=== PATIENT | female | born 1985 | race American Indian/Alaskan Native ===

== ENCOUNTER 2021-05-19 09:38 | Emergency (ER) | payer MEDICAID, OTHER ==
[2021-05-19 09:14] VITALS: BP 124/80
--- NOTE | 2021-05-19 11:56 | Emergency Department Report ---
ED General Adult HPI - General Chief complaint: Pain General Stated complaint: LUPUS JOINT PAIN Time Seen by Provider: 05/19/21 11:48 Source: patient Mode of arrival: Ambulatory Limitations: No Limitations - History of Present Illness Initial comments: Patient is a 35-year-old female presents emergency room complaints of a flare of her lupus that began a week and a half ago. She states that she experiences it in different joints. She states it is never in the same joints. She states occasionally the joints will swell. She states it feels like a burning sensation in her joints. Patient states that she takes Plaquenil and prednisone 5 mg daily. She states that she has been out of her medication for 2 weeks. She reports that she recently went to urgent care and was given a steroid shot. She states that she missed her appointment in April with her diesel motor mechanic and she cannot get another appointment until September. She denies any fever, nausea, vomiting, diarrhea, numbness, weakness, any other symptoms. No allergies to medicines. - Related Data Previous Rx's Medication Instructions Recorded Last Taken Type Hydroxychloroquine [Plaquenil] 200 mg PO QDAY #30 tablet 05/19/21 Unknown Rx Naproxen [EC-Naprosyn] 500 mg PO BID PRN #20 tablet. 05/19/21 Unknown Rx predniSONE 5 mg PO QDAY #60 tab 05/19/21 Unknown Rx predniSONE [Deltasone] 40 mg PO QDAY 5 Days #10 tab 05/19/21 Unknown Rx traMADoL [Ultram 50 MG tab] 50 mg PO Q6HR PRN #12 tablet 05/19/21 Unknown Rx Allergies Allergy/AdvReac Type Severity Reaction Status Date / Time No Known Allergies Allergy Unverified 05/19/21 09:09 ED Review of Systems ROS: Stated complaint: LUPUS JOINT PAIN Other details as noted in HPI Comment: All other systems reviewed and negative ED Past Medical Hx - Past Medical History Previous Medical History?: Yes Additional medical history: Lupus - Surgical History Additional Surgical History: tonsilectomy - Medications Home Medications: Home Medications Medication Instructions Recorded Confirmed Last Taken Type Hydroxychloroquine [Plaquenil] 200 mg PO QDAY #30 tablet 05/19/21 Unknown Rx Naproxen [EC-Naprosyn] 500 mg PO BID PRN #20 tablet. 05/19/21 Unknown Rx predniSONE 5 mg PO QDAY #60 tab 05/19/21 Unknown Rx predniSONE [Deltasone] 40 mg PO QDAY 5 Days #10 tab 05/19/21 Unknown Rx traMADoL [Ultram 50 MG tab] 50 mg PO Q6HR PRN #12 tablet 05/19/21 Unknown Rx ED Physical Exam - General Limitations: No Limitations General appearance: alert, in no apparent distress - Head Head exam: Present: atraumatic, normocephalic - Eye Eye exam: Present: normal appearance - ENT ENT exam: Present: mucous membranes moist - Respiratory Respiratory exam: Absent: respiratory distress, accessory muscle use - Extremities Exam Extremities exam: Present: other (FROM of the BUE/BLE, mild ttp in multiple joints, no edema, no erythema, no increased warmth, neurovasculalry intact throughout) - Neurological Exam Neurological exam: Present: alert, oriented X3 - Psychiatric Psychiatric exam: Present: normal affect, normal mood - Skin Skin exam: Present: warm, dry, intact ED Course Vital Signs 05/19/21 09:10 Temperature 98.8 F Pulse Rate 89 Respiratory 16 Rate Blood Pressure 124/80 [Right] O2 Sat by Pulse 98 Oximetry ED Medical Decision Making - Medical Decision Making Patient is a 35-year-old female presents emergency room complaints of a flare of her lupus that began a week and a half ago. She states that she experiences it in different joints. She states it is never in the same joints. She states occasionally the joints will swell. She states it feels like a burning sensation in her joints. Patient states that she takes Plaquenil and prednisone 5 mg daily. She states that she has been out of her medication for 2 weeks. She reports that she recently went to urgent care and was given a steroid shot. She states that she missed her appointment in April with her diesel motor mechanic and she cannot get another appointment until September. She denies any fever, nausea, vomiting, diarrhea, numbness, weakness, any other symptoms. No allergies to medicines. Vitals are normal. On exam:FROM of the BUE/BLE, mild ttp in multiple joints, no edema, no erythema, no increased warmth, neurovasculalry intact throughout. Patient given prescription for medications. Advised patient Please take medication as prescribed. Please follow-up with your primary care doctor. Please follow-up with your diesel motor mechanic. Return to emergency room for any new or worsening symptoms. Do not drive or operate heavy machinery while taking severe pain medication tramadol. Critical care attestation.: If time is entered above; I have spent that time in minutes in the direct care of this critically ill patient, excluding procedure time. ED Disposition Clinical Impression: Lupus, Medication refill Joint pain Qualifiers: Joint pain location: unspecified Qualified Code(s): M25.50 - Pain in unspecified joint Disposition: - TO HOME OR SELFCARE Is pt being admited?: No Does the pt Need Aspirin: No Condition: Stable Instructions: Systemic Lupus Erythematosus, Adult, Joint Pain, [id number] Additional Instructions: Please take medication as prescribed. Please follow-up with your primary care doctor. Please follow-up with your diesel motor mechanic. Return to emergency room for any new or worsening symptoms. Do not drive or operate heavy machinery while taking severe pain medication tramadol. Prescriptions: predniSONE [Deltasone] 40 mg PO QDAY 5 Days #10 tab Naproxen [EC-Naprosyn] 500 mg PO BID PRN #20 tablet. PRN Reason: Pain, Moderate (4-6) Hydroxychloroquine [Plaquenil] 200 mg PO QDAY #30 tablet predniSONE 5 mg PO QDAY #60 tab traMADoL [Ultram 50 MG tab] 50 mg PO Q6HR PRN #12 tablet PRN Reason: Pain , Severe (7-10) Referrals: PRIMARY CARE, [Primary Care Provider] - 2-3 Days Time of Disposition: 11:53 Print Language: PALAUAN
== END 2021-05-19 11:57 | disposition home or self-care (01) ==
LOC: ED 09:38
DX: M32.10 Systemic lupus erythematosus, organ or system involvement unspecified (principal); Z76.0 Encounter for issue of repeat prescription; Z79.899 Other long term (current) drug therapy
CPT/HCPCS: 99281

== ENCOUNTER 2022-04-11 14:08 | Emergency (ER) | payer MEDICAID ==
--- NOTE | 2022-04-11 14:26 | Emergency Department Report ---
Chief Complaint: Medical Clearance Stated Complaint: JOINT/SEVERE BACK PAIN Time Seen by Provider: 04/11/22 14:24 - HPI History of Present Illness: Several day history of worsening back and joint pain. History of lupus. - ROS Review of Systems: Back pain. - Exam Vital Signs: Vital Signs 04/11/22 14:16 Temperature 96.9 F L Pulse Rate 109 H Respiratory 18 Rate Blood Pressure 129/87 [Left] O2 Sat by Pulse 100 Oximetry Physical Exam: Left flank area tender to touch. MSE screening note: Focused history and physical exam performed. Due to findings the following was ordered: None Patient to be seen and evaluated by provider when she gets into a long period ED Disposition for MSE Condition: Stable
[2022-04-11] MEDS ORDERED: dexAMETHasone 20 MG/5 ML VIAL IM ONE (16:58)
[2022-04-11] MEDS ORDERED: diazePAM 5 MG TAB PO ONE (16:58)
[2022-04-11] MEDS ORDERED: KETOROLAC 60 MG/2 ML INJ IM ONE (16:58)
[2022-04-11] MEDS ORDERED: ONDANSETRON 4 MG ODT TAB PO ONE (17:04)
--- NOTE | 2022-04-11 17:04 | Emergency Department Report ---
ED Back Pain/Injury HPI - General Chief Complaint: Medical Clearance Stated Complaint: JOINT/SEVERE BACK PAIN Time Seen by Provider: 04/11/22 14:24 Source: patient Limitations: No Limitations - History of Present Illness Initial Comments: Patient is a 36-year-old -Japanese female with a history of SLE and lupus on oral prednisone 10 mg daily in addition to other medications for SLE presents to the ED with acute onset persistent nontraumatic left-sided mid posterior thoracic pain for the last 3 days. Patient states that the pain is worsened in the last 24 hours such that she is unable to sleep because of worsening pain. Patient states the pain is especially worse with movement or palpation of the back. Patient denies chest pain, dyspnea, dizziness, syncope, traumatic injury, headache, heavy lifting, abdominal pain, nausea and vomiting, dysuria, urinary frequency and urgency or cough. MD Complaint: back pain (Left-sided mid posterior thoracic pain) -: days(s) (3) Similar Symptoms Previously: No Place: home Radiation: none Severity: severe Severity scale (0 -10): 8 Quality: sharp, aching Consistency: constant Improves With: none Worsens With: movement, walking Context: while lifting, turning/twisting, bending Associated Symptoms: denies other symptoms. denies: confusion, weakness, chest pain, numbness, difficulty walking, cough, difficulty urinating, diaphoresis, incontinence, constipation, loss of appetite, malaise, nausea/vomiting, rash, seizure, syncope, other - Related Data Previous Rx's Medication Instructions Recorded Last Taken Type Hydroxychloroquine [Plaquenil] 200 mg PO QDAY #30 tablet 05/19/21 Unknown Rx predniSONE 5 mg PO QDAY #60 tab 05/19/21 Unknown Rx predniSONE [Deltasone] 40 mg PO QDAY 5 Days #10 tab 05/19/21 Unknown Rx Naproxen [EC-Naprosyn] 500 mg PO BID PRN #30 tablet. 04/11/22 Unknown Rx methOCARBAMOL [Robaxin TAB] 750 mg PO Q8H PRN #30 tab 04/11/22 Unknown Rx traMADoL [Ultram 50 MG tab] 50 mg PO Q6HR PRN #12 tablet 04/11/22 Unknown Rx Allergies Allergy/AdvReac Type Severity Reaction Status Date / Time No Known Allergies Allergy Verified 04/11/22 14:18 ED Review of Systems ROS: Stated complaint: JOINT/SEVERE BACK PAIN Other details as noted in HPI Constitutional: denies: chills, fever Eyes: denies: eye pain, eye discharge, vision change ENT: denies: ear pain, throat pain Respiratory: denies: cough, shortness of breath, wheezing Cardiovascular: denies: chest pain, palpitations Endocrine: no symptoms reported Gastrointestinal: denies: abdominal pain, nausea, vomiting, diarrhea Genitourinary: denies: urgency, dysuria, discharge Musculoskeletal: back pain (Left-sided mid posterior thoracic pain). denies: joint swelling, arthralgia Skin: denies: rash, lesions Neurological: denies: headache, weakness, paresthesias Psychiatric: denies: anxiety, depression Hematological/Lymphatic: denies: easy bleeding, easy bruising ED Past Medical Hx - Past Medical History Additional medical history: Lupus - Surgical History Additional Surgical History: tonsilectomy - Medications Home Medications: Home Medications Medication Instructions Recorded Confirmed Last Taken Type Hydroxychloroquine [Plaquenil] 200 mg PO QDAY #30 tablet 05/19/21 Unknown Rx predniSONE 5 mg PO QDAY #60 tab 05/19/21 Unknown Rx predniSONE [Deltasone] 40 mg PO QDAY 5 Days #10 tab 05/19/21 Unknown Rx Naproxen [EC-Naprosyn] 500 mg PO BID PRN #30 tablet. 04/11/22 Unknown Rx methOCARBAMOL [Robaxin TAB] 750 mg PO Q8H PRN #30 tab 04/11/22 Unknown Rx traMADoL [Ultram 50 MG tab] 50 mg PO Q6HR PRN #12 tablet 04/11/22 Unknown Rx ED Physical Exam - General Limitations: No Limitations General appearance: alert, in no apparent distress - Head Head exam: Present: atraumatic, normocephalic, normal inspection - Eye Eye exam: Present: normal appearance, PERRL, EOMI Pupils: Present: normal accommodation - ENT ENT exam: Present: normal exam, normal orophraynx, mucous membranes moist, TM's normal bilaterally, normal external ear exam - Neck Neck exam: Present: normal inspection, full ROM. Absent: tenderness - Respiratory Respiratory exam: Present: normal lung sounds bilaterally. Absent: respiratory distress, wheezes, rhonchi, stridor, chest wall tenderness, accessory muscle use, decreased breath sounds, prolonged expiratory - Cardiovascular Cardiovascular Exam: Present: normal rhythm, tachycardia, normal heart sounds. Absent: systolic murmur, diastolic murmur, rubs, gallop - GI/Abdominal GI/Abdominal exam: Present: soft, normal bowel sounds. Absent: tenderness, guarding, rebound, rigid, hyperactive bowel sounds, hypoactive bowel sounds, organomegaly - Extremities Exam Extremities exam: Present: normal inspection, full ROM, normal capillary refill. Absent: tenderness, pedal edema, joint swelling - Back Exam Back exam: Present: normal inspection, full ROM, tenderness, muscle spasm, paraspinal tenderness - Neurological Exam Neurological exam: Present: alert, oriented X3, CN II-XII intact, normal gait, reflexes normal - Psychiatric Psychiatric exam: Present: normal affect, normal mood - Skin Skin exam: Present: warm, dry, intact, normal color. Absent: rash ED Course Vital Signs 04/11/22 14:16 Temperature 96.9 F L Pulse Rate 109 H Respiratory 18 Rate Blood Pressure 129/87 [Left] O2 Sat by Pulse 100 Oximetry ED Medical Decision Making - Medical Decision Making This is a 36-year-old -Japanese female with a history of SLE and lupus on oral prednisone 10 mg daily in addition to other medications for SLE presents to the ED with acute onset persistent nontraumatic left-sided mid posterior thoracic pain for the last 3 days. Patient states that the pain is worsened in the last 24 hours such that she is unable to sleep because of worsening pain. Patient states the pain is especially worse with movement or palpation of the back. In the ED, patient is alert and oriented x3 and is not in any distress. Patient was treated for pain in the ED. Patient will discharge home on medications and advised to follow-up with her primary care physician in 7 to 10 days for reevaluation. Patient is advised to return to the ED immediately if symptoms get worse. - Differential Diagnosis Muscle strain; muscle spasm; chronic pain syndrome pain; Critical care attestation.: If time is entered above; I have spent that time in minutes in the direct care of this critically ill patient, excluding procedure time. ED Disposition Clinical Impression: Spasm of thoracic back muscle, Strain of muscle and tendon of back wall of thorax, initial encounter, Chronic pain syndrome Disposition: HOME / SELF CARE / HOMELESS Is pt being admited?: No Does the pt Need Aspirin: No Condition: Stable Instructions: Muscle Cramps and Spasms, [id number], Muscle Strain, [id number], Chronic Pain, Adult Additional Instructions: Take medication with food, drink plenty of fluids and follow-up with your primary care physician in 7 to 10 days for reevaluation. Return to the ED immediately if symptoms get worse. Prescriptions: Naproxen [EC-Naprosyn] 500 mg PO BID PRN #30 tablet. PRN Reason: Pain , Severe (7-10) methOCARBAMOL [Robaxin TAB] 750 mg PO Q8H PRN #30 tab PRN Reason: Muscle Spasm traMADoL [Ultram 50 MG tab] 50 mg PO Q6HR PRN #12 tablet PRN Reason: Pain , Severe (7-10) Referrals: [facility] [Provider Group] - 7-10 days Time of Disposition: 17:04 Print Language: SAMMARINESE
[2022-04-11] MEDS ORDERED: oxyCODONE /ACETAMINOPHEN 5-325MG TAB PO ONE (17:06)
[2022-04-11 17:33] VITALS: BP 138/86
== END 2022-04-11 17:33 | disposition home or self-care (01) ==
LOC: ED 14:08
DX: S29.012A Strain of muscle and tendon of back wall of thorax, initial encounter (principal); M62.830 Muscle spasm of back; G89.4 Chronic pain syndrome; X58.XXXA Exposure to other specified factors, initial encounter; Y93.89 Activity, other specified; Y92.89 Other specified places as the place of occurrence of the external cause; Y99.8 Other external cause status
CPT/HCPCS: 96372; 99282

== ENCOUNTER 2022-04-30 13:07 | Emergency (ER) | payer MEDICAID ==
[2022-04-30 16:37] VITALS: BP 108/74
--- NOTE | 2022-04-30 18:43 | Emergency Department Report ---
ED General Adult HPI - General Chief complaint: Earache Stated complaint: LEFT EAR IS NUMB Source: patient Mode of arrival: Ambulatory Limitations: No Limitations - History of Present Illness Initial comments: Patient is a 36-year-old -[place] female with a history of SLE and anxiety who presents to the ED with complaint of left ear pressure and tingling sensation radiating to the left ear to the maxillary sinus with pressure for the last 8 hours. Patient states that she was asleep when she woke up with the symptoms and was scared that she might be having a stroke. Patient denies headache, dizziness, syncope, nausea and vomiting, tingling sensation in the tongue, dysphagia, dysphonia, chest pain and shortness of breath, fever, chills, cough, change in vision, traumatic injury or hearing loss. MD Complaint: left ear pain, tingling and pressure -: hour(s) (10) Location: face (left ear) Radiation: non-radiation Severity scale (0 -10): 6 Quality: aching, sharp Consistency: constant Improves with: none Worsens with: none Associated Symptoms: denies other symptoms. denies: confusion, chest pain, cough, diaphoresis, fever/chills, headaches, loss of appetite, malaise, nausea/vomiting, rash, seizure, shortness of breath, syncope, weakness Treatments Prior to Arrival: none - Related Data Previous Rx's Medication Instructions Recorded Last Taken Type Hydroxychloroquine [Plaquenil] 200 mg PO QDAY #30 tablet 05/19/21 Unknown Rx predniSONE 5 mg PO QDAY #60 tab 05/19/21 Unknown Rx predniSONE [Deltasone] 40 mg PO QDAY 5 Days #10 tab 05/19/21 Unknown Rx Naproxen [EC-Naprosyn] 500 mg PO BID PRN #30 tablet. 04/11/22 Unknown Rx methOCARBAMOL [Robaxin TAB] 750 mg PO Q8H PRN #30 tab 04/11/22 Unknown Rx traMADoL [Ultram 50 MG tab] 50 mg PO Q6HR PRN #12 tablet 04/11/22 Unknown Rx Amoxicillin/K Clav Tab [Augmentin 1 tab PO Q12HR #20 tab 04/30/22 Unknown Rx 875 mg] predniSONE [Deltasone] 40 mg PO DAILY #10 tab 04/30/22 Unknown Rx Allergies Allergy/AdvReac Type Severity Reaction Status Date / Time No Known Allergies Allergy Verified 04/11/22 14:18 ED Review of Systems ROS: Stated complaint: LEFT EAR IS NUMB Other details as noted in HPI Constitutional: denies: chills, fever Eyes: denies: eye pain, eye discharge, vision change ENT: ear pain (pressure), congestion. denies: throat pain Respiratory: denies: cough, shortness of breath, wheezing Cardiovascular: denies: chest pain, palpitations Endocrine: no symptoms reported Gastrointestinal: denies: abdominal pain, nausea, vomiting, diarrhea Genitourinary: denies: urgency, dysuria, discharge Musculoskeletal: denies: back pain, joint swelling, arthralgia Skin: denies: rash, lesions Neurological: denies: headache, weakness, paresthesias Psychiatric: denies: anxiety, depression Hematological/Lymphatic: denies: easy bleeding, easy bruising ED Past Medical Hx - Past Medical History Previous Medical History?: No Additional medical history: Lupus - Surgical History Past Surgical History?: Yes Additional Surgical History: tonsilectomy - Medications Home Medications: Home Medications Medication Instructions Recorded Confirmed Last Taken Type Hydroxychloroquine [Plaquenil] 200 mg PO QDAY #30 tablet 05/19/21 Unknown Rx predniSONE 5 mg PO QDAY #60 tab 05/19/21 Unknown Rx predniSONE [Deltasone] 40 mg PO QDAY 5 Days #10 tab 05/19/21 Unknown Rx Naproxen [EC-Naprosyn] 500 mg PO BID PRN #30 tablet. 04/11/22 Unknown Rx methOCARBAMOL [Robaxin TAB] 750 mg PO Q8H PRN #30 tab 04/11/22 Unknown Rx traMADoL [Ultram 50 MG tab] 50 mg PO Q6HR PRN #12 tablet 04/11/22 Unknown Rx Amoxicillin/K Clav Tab [Augmentin 1 tab PO Q12HR #20 tab 04/30/22 Unknown Rx 875 mg] predniSONE [Deltasone] 40 mg PO DAILY #10 tab 04/30/22 Unknown Rx ED Physical Exam - General Limitations: No Limitations General appearance: alert, in no apparent distress - Head Head exam: Present: atraumatic, normocephalic, normal inspection - Eye Eye exam: Present: normal appearance, PERRL, EOMI Pupils: Present: normal accommodation - ENT ENT exam: Present: normal orophraynx, mucous membranes moist, normal external ear exam, other (Bulging left tympanic membrane with effusion) - Neck Neck exam: Present: normal inspection, full ROM. Absent: tenderness - Respiratory Respiratory exam: Present: normal lung sounds bilaterally. Absent: respiratory distress, wheezes, rales, rhonchi, chest wall tenderness, accessory muscle use, decreased breath sounds, prolonged expiratory - Cardiovascular Cardiovascular Exam: Present: regular rate, normal rhythm, normal heart sounds. Absent: systolic murmur, diastolic murmur, rubs, gallop - GI/Abdominal GI/Abdominal exam: Present: soft, normal bowel sounds. Absent: tenderness, guarding, rebound, hyperactive bowel sounds, hypoactive bowel sounds, organomegaly - Extremities Exam Extremities exam: Present: normal inspection, full ROM, normal capillary refill - Back Exam Back exam: Present: normal inspection, full ROM. Absent: tenderness, CVA tenderness (R), muscle spasm, paraspinal tenderness, vertebral tenderness - Neurological Exam Neurological exam: Present: alert, oriented X3, CN II-XII intact, normal gait, reflexes normal - Psychiatric Psychiatric exam: Present: normal affect, normal mood, anxious - Skin Skin exam: Present: warm, dry, intact, normal color. Absent: rash ED Course Vital Signs 04/30/22 16:35 Temperature 98.7 F Pulse Rate 88 Respiratory 16 Rate Blood Pressure 108/74 [Right] O2 Sat by Pulse 100 Oximetry ED Medical Decision Making - Medical Decision Making This is a 36-year-old -[place] female with a history of SLE and anxiety who presents to the ED with complaint of left ear pressure and tingling sensation radiating to the left ear to the maxillary sinus with pressure for the last 8 hours. Patient states that she was asleep when she woke up with the symptoms and was scared that she might be having a stroke. In the ED, patient is alert and oriented x3 and is not in any distress. Patient is hemodynamically stable. Patient was discharged home on medications and advised to follow-up with her primary care physician in 7 to 10 days for reevaluation or return to the ED immediately if symptoms get worse. - Differential Diagnosis SINUSITIS; OTITIS MEDIA; URI Critical care attestation.: If time is entered above; I have spent that time in minutes in the direct care of this critically ill patient, excluding procedure time. ED Disposition Clinical Impression: Acute otitis media with effusion of left ear Acute maxillary sinusitis, unspecified Qualifiers: Recurrence: not specified as recurrent Qualified Code(s): J01.00 - Acute maxillary sinusitis, unspecified Disposition: 01 HOME / SELF CARE / HOMELESS Is pt being admited?: No Does the pt Need Aspirin: No Condition: Stable Instructions: Otitis Media (ED), Otitis Media, Adult, [id number], Sinusitis, Adult, [id number], Upper Respiratory Infection, Adult, [id number] Additional Instructions: Take medication with food, drink plenty of fluids and follow-up with your primary care physician in 7 to 10 days for reevaluation. Return to the ED immediately if symptoms get worse. Prescriptions: Amoxicillin/K Clav Tab [Augmentin 875 mg] 1 tab PO Q12HR #20 tab predniSONE [Deltasone] 40 mg PO DAILY #10 tab Referrals: [facility] [Provider Group] - 3-5 Days Time of Disposition: 18:49 Print Language: KINYARWANDA
== END 2022-04-30 19:17 | disposition home or self-care (01) ==
LOC: ED 13:07
DX: H65.92 Unspecified nonsuppurative otitis media, left ear (principal); J01.00 Acute maxillary sinusitis, unspecified; M32.9 Systemic lupus erythematosus, unspecified; Z98.890 Other specified postprocedural states
CPT/HCPCS: 99282